=== PATIENT | male | born 1990 | race Hispanic/Latino ===

== ENCOUNTER 2017-09-18 13:22 | Emergency (ER) | payer OTHER ==
[~2017-09-18] VITALS: Ht 172.7 cm; Wt 72.7 kg
[2017-09-18] MEDS ORDERED: MOTRIN600 MG PO (17:53)
[2017-09-18 18:18] VITALS: BP 133/85
== END 2017-09-18 18:00 | disposition home or self-care (01) ==
LOC: EME 13:22
DX: S53.125A Posterior dislocation of left ulnohumeral joint, initial encounter (principal); W19.XXXA Unspecified fall, initial encounter; Y93.23 Activity, snow (alpine) (downhill) skiing, snowboarding, sledding, tobogganing and snow tubing; Y92.838 Other recreation area as the place of occurrence of the external cause; Z88.5 Allergy status to narcotic agent
CPT/HCPCS: 73080; 99281; 99285; J2270